=== PATIENT | female | born 1990 | race Caucasian/White ===

== ENCOUNTER → 2020-09-11 | Outpatient (REF) | payer OTHER ==
[2020-09-11 15:45] LABS: HEMATOCRIT 36.8 % (36.0-47.0); HEMOGLOBIN 12.9 g/dl (12.0-15.5); MEAN CORPUSCULAR HEMOGLOBIN 30.9 pg (27.0-33.0); MEAN CORPUSCULAR HGB CONC 35.1 g/dl (32.0-36.5); MEAN CORPUSCULAR VOLUME 88.2 fl (80.0-96.0); PLATELET COUNT, AUTOMATED 251 10^3/uL (150-450); RED BLOOD COUNT 4.17 10^6/uL (4.00-5.40); WHITE BLOOD COUNT 8.1 10^3/uL (4.0-10.0)
[2020-09-11 17:03] LABS: HEPATITIS C VIRUS ABY INDEX < 0.0 INDEX (<0.8); HIV 1&2 SCREEN CENTAUR NEGATIVE (NEGATIVE)
[2020-09-11 17:38] LABS: CHLAMYDIA DNA AMPLIFICATION NEGATIVE (NEGATIVE); GC DNA AMPLIFICATION NEGATIVE (NEGATIVE)
== END ==
LOC: M PLALAB 13:49
PROVIDERS: ATTEND Advanced Practice Midwife
DX: Z34.91 Encounter for supervision of normal pregnancy, unspecified, first trimester (principal)

== ENCOUNTER → 2020-10-09 | Outpatient (CLI) | payer OTHER | LOC: M PLALAB 14:54 | PROVIDERS: ATTEND Advanced Practice Midwife | DX: Z34.81 Encounter for supervision of other normal pregnancy, first trimester (principal); Z3A.00 Weeks of gestation of pregnancy not specified | CPT/HCPCS: 36415; G0463 ==

== ENCOUNTER → 2020-12-04 | Outpatient (CLI) | payer OTHER ==
--- NOTE | 2020-12-04 14:08 | REP ---
INDICATION: ANATOMY. COMPARISON: None. TECHNIQUE: Transabdominal obstetric sonography. FINDINGS: Scanning through the gravid uterus demonstrates a viable single intrauterine gestation in transverse head to the maternal right lie. motion is observed and heart rate is recorded at 155 beats per minute. A posterior placenta is seen, grade 1, without evidence of placenta previa. Closed cervical length is measured at 4.3 cm transabdominally. No extrauterine abnormality is observed. Amniotic fluid is subjectively normal. No anomaly is seen. The following anatomic structures are identified and felt to be sonographically unremarkable: cranium, choroid plexus, cavum, cerebellum and posterior fossa, face and profile, lungs, four-chamber heart with left ventricular outflow tract views, diaphragm, left-sided stomach, abdominal wall cord insertion, three-vessel umbilical cord, kidneys and bladder, and upper and lower extremities. spine and right ventricular cardiac outflow tract views are less than optimally achieved due to position. Biometry chart: BPD 4.6 cm, 20 weeks 0 days Head circumference 17.8 cm, 20 weeks 2 days Abdominal circumference 15.6 cm, 20 weeks 5 days Femur length 3.2 cm, 19 weeks 6 days Humeral length 3.1 cm, 20 weeks 2 days HC AC ratio normal 1.14 Cephalic index normal 0.71 Estimated weight 347 g, 0 lb 12 oz, 31st percentile for 20 weeks 4 days IMPRESSION: Viable single intrauterine gestation at 20 weeks 2 days by today's composite sonographic criteria. PROSPER by today's sonography April 21, 2021. No complication identified. spine and right ventricular cardiac outflow tract views less than optimally achieved due to position. <Electronically signed by Eduardo Davies > 12/04/20 [id number]
== END ==
LOC: M WHC 06:56
PROVIDERS: ATTEND Obstetrics & Gynecology
DX: O32.2XX0 Maternal care for transverse and oblique lie, not applicable or unspecified (principal); Z36.89 Encounter for other specified antenatal screening; Z3A.20 20 weeks gestation of pregnancy

== ENCOUNTER → 2020-12-22 | Outpatient (CLI) | payer OTHER ==
--- NOTE | 2020-12-22 13:38 | REP ---
INDICATION: F/U ANATOMY COMPARISON: 12/04/2020 TECHNIQUE: Transabdominal obstetrical ultrasound with color Doppler evaluation. FINDINGS: Examination demonstrates a single live intrauterine in cephalic presentation. motion is identified by technologist. Placenta is noted posterior and grade 1 without evidence for placenta previa or abruption. Amniotic fluid volume is normal. Cervix measures 3.3 cm in length and appears closed.. Gestational age by LMP and 1st U/S 23 weeks 1 day with PROSPER 04/19/2021. Gestational age by current measurements 22 weeks 5 days with PROSPER 04/22/2021. FHR equals 139 beats per minute. Estimated weight 526 grams (25thpercentile). Anatomical assessment demonstrates normal structures including four-chamber heart/ventricular outflow tracts and spine.. IMPRESSION: Single live intrauterine in cephalic presentation demonstrating appropriate interval growth. In conjunction with prior examination anatomical assessment is complete and normal. <Electronically signed by Yousuf Smith > 12/22/20 [id number]
== END ==
LOC: M WHC 10:55
PROVIDERS: ATTEND Advanced Practice Midwife
DX: Z36.2 Encounter for other antenatal screening follow-up (principal); Z3A.22 22 weeks gestation of pregnancy

== ENCOUNTER → 2021-01-21 | Outpatient (REF) | payer OTHER ==
[2021-01-21 13:20] LABS: HEMATOCRIT 35.8 % (36.0-47.0); HEMOGLOBIN 11.9 g/dl (12.0-15.5); MEAN CORPUSCULAR HEMOGLOBIN 31.2 pg (27.0-33.0); MEAN CORPUSCULAR HGB CONC 33.2 g/dl (32.0-36.5); PLATELET COUNT, AUTOMATED 198 10^3/uL (150-450); RED BLOOD COUNT 3.81 10^6/uL (4.00-5.40)
== END ==
LOC: M PLALAB 08:58
PROVIDERS: ATTEND Advanced Practice Midwife
DX: Z36.89 Encounter for other specified antenatal screening (principal); Z3A.00 Weeks of gestation of pregnancy not specified

== ENCOUNTER → 2021-03-16 | Outpatient (CLI) | payer OTHER ==
--- NOTE | 2021-03-16 11:25 | REP ---
INDICATION: UTERINE SIZE DATE DISCRPANCY,GROWTH. COMPARISON: Comparison study December 22, 2020.. TECHNIQUE: Transabdominal obstetric sonography. FINDINGS: Scanning through the gravid uterus demonstrates a viable single intrauterine gestation in cephalic lie. motion is observed and heart rate is recorded at 132 beats per minute. A posterior placenta is seen, grade 1, without evidence of placenta previa. Closed cervical length is measured at 3.3 cm transabdominally. No extrauterine abnormality is observed. Amniotic fluid is subjectively normal, RAVI normal 12.0 cm.. . Biometry chart: BPD 8.8 cm, 35 weeks 3 days Head circumference 31.5 cm, 35 weeks 2 days Abdominal circumference 30.7 cm, 34 weeks 4 days Femur length 6.7 cm, 34 weeks 4 days Humeral length 5.7 cm, 32 weeks 6 days HC AC ratio normal 1.03 Cephalic index normal 0.79 Estimated weight 2508 g, 5 lb 8 oz, 37th percentile for 35 weeks 1 day IMPRESSION: Viable single intrauterine gestation at 34 weeks 4 days by today's composite sonographic criteria. PROSPER by today's sonography April 23, 2021. No complication identified. Expected gestational age estimate based on PROSPER of 19 April 2021 is 35 weeks 1 day. Appropriate interval growth. <Electronically signed by Eduardo Davies > 03/16/21 [id number]
== END ==
LOC: M WHC 07:55
PROVIDERS: ATTEND Obstetrics & Gynecology
DX: O26.843 Uterine size-date discrepancy, third trimester (principal); Z3A.34 34 weeks gestation of pregnancy

== ENCOUNTER → 2021-03-23 | Outpatient (REF) | payer OTHER | LOC: M PLALAB 10:22 | PROVIDERS: ATTEND Obstetrics & Gynecology | DX: Z36.89 Encounter for other specified antenatal screening (principal); Z3A.36 36 weeks gestation of pregnancy | CPT/HCPCS: 87081; G0463 ==

== ENCOUNTER 2021-04-17 08:36 | Inpatient (IN) | payer OTHER ==
[~2021-04-17] VITALS: Ht 157.5 cm; Wt 75.1 kg
[2021-04-17] VITALS (30 sets, daily range): BP systolic 104–170; BP diastolic 51–85
[2021-04-17] MEDS ORDERED: HOME MED LIST COMPLETE! XX SCH (09:10)
[2021-04-17] MEDS ORDERED: PRENTAB9 PO (09:39)
[2021-04-17] MEDS ORDERED: ALBUTEROL INH (09:43)
[2021-04-17 12:39] LABS: HEMATOCRIT 40.5 % (36.0-47.0); HEMOGLOBIN 14.1 g/dl (12.0-15.5); MEAN CORPUSCULAR HEMOGLOBIN 32.1 pg (27.0-33.0); MEAN CORPUSCULAR HGB CONC 34.8 g/dl (32.0-36.5); MEAN CORPUSCULAR VOLUME 92.3 fl (80.0-96.0); PLATELET COUNT, AUTOMATED 179 10^3/uL (150-450); RED BLOOD COUNT 4.39 10^6/uL (4.00-5.40); WHITE BLOOD COUNT 15.5 10^3/uL (4.0-10.0)
[2021-04-17] MEDS ORDERED: LR 1,000 ML IV SCH ×2 (14:15→16:50)
[2021-04-17] MEDS ORDERED: LR 1,000 ML IV ONE (14:15)
[2021-04-17] MEDS ORDERED: FENTANYL 2MCG/ML ROPIVACAINE 0.2% IN 0.9% NACL 100ML IVBAG As Ordered ONE (14:46)
[2021-04-17] MEDS ORDERED: ePHEDrine SULFATE 25 MG/5 ML(5MG/ML) SYRINGE IV PRN (15:30)
[2021-04-17] MEDS ORDERED: EPIDURAL COMMENT XX SCH (15:30)
[2021-04-17] MEDS ORDERED: EPIDURAL/PCA KEYS XX PRN (15:30)
[2021-04-17] MEDS ORDERED: NALOXONE INJ 0.4MG/1ML VIAL (J2310 PER 1MG) IV PRN (15:30)
[2021-04-17] MEDS ORDERED: ONDANSETRON 4MG/2ML VIAL IV PRN (15:30)
[2021-04-17] MEDS ORDERED: diphenhydrAMINE 50MG/ML VIAL (J1200) IV PRN (15:30)
[2021-04-17] MEDS ORDERED: LACTATED RINGER'S 1000 ML IV PRN (15:30)
[2021-04-17] MEDS ORDERED: FENTANYL/ROPIVACAINE/NACL BAG 100 ML EPIDURAL SCH (15:30)
[2021-04-17] MEDS ORDERED: REFRIGERATOR IV KEYS XX PRN (15:30)
[2021-04-17] MEDS ORDERED: OXYTOCIN DRIP 30 UNITS in IV 1 EA IV SCH ×2 (16:50→22:00)
[2021-04-17] MEDS ORDERED: CALCIUM CARBONATE 500 MG CHEW U/D PO PRN (20:20)
[2021-04-17] MEDS ORDERED: MEASLES,MUMPS,RUBELLA VACCINE INJ (MMR-II) (90707) SC SCH (22:00)
[2021-04-17] MEDS ORDERED: METHYLERGONOVINE MALEATE 0.2 MG TAB PO PRN (22:00)
[2021-04-17] MEDS ORDERED: RHOGAM 300 MCG (1500 IU) INJ (J2790) IM SCH (22:00)
[2021-04-17] MEDS ORDERED: ACETAMINOPHEN TAB 650MG DOSE (2X325MG) PO PRN (22:00)
[2021-04-17] MEDS ORDERED: ACETAMINOPHEN 500 MG TAB PO PRN (22:00)
[2021-04-17] MEDS ORDERED: IBUPROFEN 800 MG TAB PO PRN (22:00)
[2021-04-17] MEDS ORDERED: MOM 30ML SUSPENSION UDC PO PRN (22:00)
[2021-04-18] MEDS: IBUPROFEN 600MG TAB PO PRN ×2 (03:19→22:36)
[2021-04-18 06:13] VITALS: BP 95/60
[2021-04-18] MEDS: PRENATAL VITAMINS CHEWABLE TABLET PO SCH (10:39)
[2021-04-18 18:00] VITALS: BP 121/65
[2021-04-18] MEDS: DOCUSATE SODIUM 100MG CAPSULE PO PRN (19:28)
[2021-04-19 05:57] VITALS: BP 137/57
[2021-04-19] MEDS: PRENATAL VITAMINS CHEWABLE TABLET PO SCH (08:34)
[2021-04-19] MEDS: DOCUSATE SODIUM 100MG CAPSULE PO PRN (08:40)
[2021-04-19] MEDS ORDERED: IBUP80TA PO (09:26)
[2021-04-19] MEDS ORDERED: ACET-683 PO (09:26)
== END 2021-04-19 12:45 | disposition home or self-care (01) | DRG 807 ==
LOC: M LDO 08:36 → M LDI 09:51 → M OBS 23:45
PROVIDERS: ADMIT Obstetrics & Gynecology; ATTEND Obstetrics & Gynecology
PROC: 10E0XZZ Delivery of Products of Conception, External Approach (ICD-10-PCS; principal; 2021-04-17)
DX: O80 Encounter for full-term uncomplicated delivery (principal); Z37.0 Single live birth; Z3A.39 39 weeks gestation of pregnancy

== ENCOUNTER → 2021-10-22 | Outpatient (REF) | payer OTHER ==
[~2021-10-22] MED LIST: ACET-683 PO; ALBUTEROL INH; IBUP80TA PO; PRENTAB9 PO
== END ==
LOC: M PLALAB 13:42
PROVIDERS: ATTEND Advanced Practice Midwife
DX: Z01.419 Encounter for gynecological examination (general) (routine) without abnormal findings (principal); E04.9 Nontoxic goiter, unspecified
CPT/HCPCS: 87624; G0123; G0463

== ENCOUNTER → 2021-11-05 | Outpatient (CLI) | payer OTHER | LOC: M PLALAB 12:02 | PROVIDERS: ATTEND Advanced Practice Midwife | DX: E04.9 Nontoxic goiter, unspecified (principal) ==